=== PATIENT | male | born 1990 | race Caucasian/White ===

== ENCOUNTER 2017-09-03 13:45 | Emergency (ER) | payer SELFPAY ==
[2017-09-03 13:52] VITALS: BP 157/102
--- NOTE | 2017-09-03 14:35 | UC ---
Palpitation/Dysrhythmia HP - HPI Summary HPI Summary: Patient states that the last 6-8 months, he has been lethargic, and not motivated, feels like at night he cannot slow down, has had insomnia, low libido , episodes of "anxious stomach" diarrhea. He denies any homocidal/suicidal thoughts. He states he has a great supportive family, loves his job and his daughter. Has seen counselors who have told him that he is in a good mental state. He was place on benzodiazpines for his anxiety, but they made him loose his memory and he does not like the way they made him feel, nor did it take away the symtpoms. he states that he has had High BP as long as he can remember , his PCP always contributed it to anxiety. Family history of hypothyroidism. States he doesn't think is worried about anything but feel jittery. - History of Current Complaint Chief Complaint: UCGeneralIllness Stated Complaint: PALPITATIONS Time Seen by Provider: 09/03/17 13:49 Hx Obtained From: Patient Onset/Duration: Gradual Onset, Still Present - for 6-8 months Timing: Constant Severity Initially: Mild Severity Currently: Moderate Character: Fluttering Aggravating Factor(s): Nothing Alleviating Factor(s): Nothing Associated Signs & Symptoms: Positive: Lightheadedness, Shortness of Breath, Diaphoresis - Allergy/Home Medications Allergies/Adverse Reactions: Allergies Allergy/AdvReac Type Severity Reaction Status Date / Time No Known Allergies Allergy Verified 09/03/17 13:52 Home Medications: Home Medications NK [No Home Medications Reported] 09/03/17 [History Confirmed 09/03/17] Omeprazole CAP* [Prilosec CAP* 20 MG] 20 mg PO DAILY 09/03/17 [History Confirmed 09/03/17] PMH/Surg Hx/FS Hx/Imm Hx Previously Healthy: Yes - Surgical History Surgical History: Yes Surgery Procedure, Year, and Place: right wrist - Family History Known Family History: Positive: Hypertension - Social History Alcohol Use: Occasionally Substance Use Type: Marijuana Substance Use Comment - Amount & Last Used: medical marijuana patient in [place] for left eye problem Smoking Status (MU): Heavy Every Day Tobacco Smoker Type: Cigarettes Amount Used/How Often: 1/2 ppd Review of Systems Constitutional: Negative Skin: Negative Eyes: Negative ENT: Negative Respiratory: Negative Cardiovascular: Palpitations Gastrointestinal: Negative, Diarrhea - at times Motor: Negative Neurovascular: Negative Musculoskeletal: Negative Neurological: Negative Psychological: Negative Is Patient Immunocompromised?: No All Other Systems Reviewed And Are Negative: Yes Physical Exam Triage Information Reviewed: Yes Appearance: Well-Appearing, Well-Nourished, Other: - seems anxious Vital Signs: Initial Vital Signs Temp 97.3 F 09/03/17 13:47 Pulse 88 09/03/17 13:47 Resp 16 09/03/17 13:47 BP 157/102 09/03/17 13:47 Pulse Ox 100 09/03/17 13:47 Vital Signs Reviewed: Yes Eye Exam: Normal ENT Exam: Normal ENT: Positive: Normal ENT inspection, Hearing grossly normal, Pharyngeal erythema, TMs normal Dental Exam: Normal Neck exam: Normal Neck: Positive: Supple, Nontender, No Lymphadenopathy Respiratory Exam: Normal Respiratory: Positive: Chest non-tender, Lungs clear, Normal breath sounds Cardiovascular Exam: Normal Cardiovascular: Positive: RRR, No Murmur, Pulses Normal Abdominal Exam: Normal Abdomen Description: Positive: Nontender, No Organomegaly, Soft Bowel Sounds: Positive: Present Musculoskeletal Exam: Normal Musculoskeletal: Positive: Strength Intact, ROM Intact, No Edema Neurological Exam: Normal Neurological: Positive: Alert, Muscle Tone Normal Psychological Exam: Normal Skin Exam: Normal Palpitations Course/Dx - Course Course Of Treatment: hx obtained, exam performed ,meds reviewed, talked extensively about symtpoms, ekg performed, blood taken to rule out thyroid and electrlyte issues. started on propanolol. will follow up with his PCP. - Differential Dx/Diagnosis Provider Diagnoses: palpitations. High Blood pressure Discharge - Discharge Plan Condition: Stable Disposition: HOME Patient Education Materials: Hypertension (ED) Referrals: Sanchez Tai MD [Medical Doctor] - Additional Instructions: Palpitation/Dysrhythmia HP - HPI Summary HPI Summary: Patient states that the last 6-8 months, he has been lethargic, and not motivated, feels like at night he cannot slow down, has had insomnia, low libido , episodes of "anxious stomach" diarrhea. He denies any homocidal/suicidal thoughts. He states he has a great supportive family, loves his job and his daughter. Has seen counselors who have told him that he is in a good mental state. He was place on benzodiazpines for his anxiety, but they made him loose his memory and he does not like the way they made him feel, nor did it take away the symtpoms. he states that he has had High BP as long as he can remember , his PCP always contributed it to anxiety. Family history of hypothyroidism. States he doesn't think is worried about anything but feel jittery. - History of Current Complaint Chief Complaint: UCGeneralIllness Stated Complaint: PALPITATIONS Time Seen by Provider: 09/03/17 13:49 Hx Obtained From: Patient Onset/Duration: Gradual Onset, Still Present - for 6-8 months Timing: Constant Severity Initially: Mild Severity Currently: Moderate Character: Fluttering Aggravating Factor(s): Nothing Alleviating Factor(s): Nothing Associated Signs & Symptoms: Positive: Lightheadedness, Shortness of Breath, Diaphoresis - Allergy/Home Medications Allergies/Adverse Reactions: Allergies Allergy/AdvReac Type Severity Reaction Status Date / Time No Known Allergies Allergy Verified 09/03/17 13:52 Home Medications: Home Medications NK [No Home Medications Reported] 09/03/17 [History Confirmed 09/03/17] Omeprazole CAP* [Prilosec CAP* 20 MG] 20 mg PO DAILY 09/03/17 [History Confirmed 09/03/17] PMH/Surg Hx/FS Hx/Imm Hx Previously Healthy: Yes - Surgical History Surgical History: Yes Surgery Procedure, Year, and Place: right wrist - Family History Known Family History: Positive: Hypertension - Social History Alcohol Use: Occasionally Substance Use Type: Marijuana Substance Use Comment - Amount & Last Used: medical marijuana patient in [facility] for left eye problem Smoking Status (MU): Heavy Every Day Tobacco Smoker Type: Cigarettes Amount Used/How Often: 1/2 ppd Review of Systems Constitutional: Negative Skin: Negative Eyes: Negative ENT: Negative Respiratory: Negative Cardiovascular: Palpitations Gastrointestinal: Negative, Diarrhea - at times Motor: Negative Neurovascular: Negative Musculoskeletal: Negative Neurological: Negative Psychological: Negative Is Patient Immunocompromised?: No All Other Systems Reviewed And Are Negative: Yes Physical Exam Triage Information Reviewed: Yes Appearance: Well-Appearing, Well-Nourished, Other: - seems anxious Vital Signs: Initial Vital Signs Temp 97.3 F 09/03/17 13:47 Pulse 88 09/03/17 13:47 Resp 16 09/03/17 13:47 BP 157/102 09/03/17 13:47 Pulse Ox 100 09/03/17 13:47 Vital Signs Reviewed: Yes Eye Exam: Normal ENT Exam: Normal ENT: Positive: Normal ENT inspection, Hearing grossly normal, Pharyngeal erythema, TMs normal Dental Exam: Normal Neck exam: Normal Neck: Positive: Supple, Nontender, No Lymphadenopathy Respiratory Exam: Normal Respiratory: Positive: Chest non-tender, Lungs clear, Normal breath sounds Cardiovascular Exam: Normal Cardiovascular: Positive: RRR, No Murmur, Pulses Normal Abdominal Exam: Normal Abdomen Description: Positive: Nontender, No Organomegaly, Soft Bowel Sounds: Positive: Present Musculoskeletal Exam: Normal Musculoskeletal: Positive: Strength Intact, ROM Intact, No Edema Neurological Exam: Normal Neurological: Positive: Alert, Muscle Tone Normal Psychological Exam: Normal Skin Exam: Normal Palpitations Course/Dx - Course Course Of Treatment: hx obtained, exam performed ,meds reviewed, talked extensively about symtpoms, ekg performed, blood taken to rule out thyroid and electrlyte issues. started on propanolol. will follow up with his PCP. - Differential Dx/Diagnosis Provider Diagnoses: palpitations. High Blood pressure Discharge - Discharge Plan Condition: Stable Disposition: HOME Patient Education Materials: Hypertension (ED) 1. Follow up with your PCP on tuesday, 2. I recommend, massage, or other relaxation modalities to help promote decreased anxiety and help regulate sleep patterns. 3. we ran a Complete blood count, complete metabolic panel, TSH, to check your levels due to family history.
[2017-09-04 14:27] LABS: Hematocrit 45 % (42-52); Hemoglobin 15.5 g/dl (14.0-18.0); Mean Corpuscular HGB Conc 34 g/dl (31-36); Mean Corpuscular Hemoglobin 31 pg (27-31); Mean Corpuscular Volume 91 fL (80-94); Mean Platelet Volume 11 um3 (7.4-10.4); Red Blood Count 4.99 10^6/ul (4.0-5.4); Red Cell Distribution Width 13 % (10.5-15); White Blood Count 6.3 10^3/ul (3.5-10.8)
[2017-09-04 14:41] LABS: Albumin 4.4 g/dL (3.2-5.2); BUN/Creatinine Ratio 19.8 (8-20); EGFR African American 119.9 (>60); EGFR Non-African American 93.3 (>60); Globulin 2.8 g/dL (2-4); Potassium 4.6 mmol/L (3.5-5.0); Total Bilirubin 0.6 mg/dL (0.2-1.0); Total Protein 7.2 g/dL (6.4-8.9)
[2017-09-04 15:03] LABS: TSH (Thyroid Stimulating Horm) 1.55 mcIU/mL (0.34-5.60)
--- NOTE | 2017-09-05 10:39 | ED ---
Progress - Progress Note Progress Note: The patient requires follow up with his primary doctor for increased eosinophil count on his CBC, and for his elevated liver enzymes.. Send results to primary doctors, call patient and he has to follow up with primary doctor for elevated liver enzymes and eosinophil count. Course/Dx - Course Course Of Treatment: hx obtained, exam performed ,meds reviewed, talked extensively about symtpoms, ekg performed, blood taken to rule out thyroid and electrlyte issues. started on propanolol. will follow up with his PCP. - Diagnoses Provider Diagnoses: Elevated liver enzymes, Eosinophilia
== END 2017-09-03 15:32 | disposition home or self-care (01) ==
LOC: UCCORT 13:45
DX: R00.2 Palpitations (principal); I10 Essential (primary) hypertension; F17.210 Nicotine dependence, cigarettes, uncomplicated; F12.90 Cannabis use, unspecified, uncomplicated
CPT/HCPCS: 36415; 80053; 84443; 85025; 93005; 99201; G0463